=== PATIENT | female | born 1990 | race Caucasian/White ===

== ENCOUNTER 2018-07-02 15:41 | Emergency (ER) | payer OTHER ==
[2018-07-02 16:03] VITALS: BP 113/71
--- NOTE | 2018-07-02 16:18 | ED Physician Documentation ---
History of Present Illness - Stated complaint Stated Complaint: DOMINGUEZ/HOT FLASH/DIZZY - Chief complaint Chief Complaint: General - History obtained from History obtained from: Patient, Family - History of Present Illness Timing: Today (At 930 today she had a relatively sudden onset headache that was only present if she moved her head or bends over. It was bitemporal. It was not the worst headache of her life. 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 Subsequent to that she did get a little panicky with palpitations. At this point she feels almost completely better with just a mild headache and anxiety which she declines any medications for. She denies any new medications. No recent travel. No possibility of , she has an IUD in place.) Review of Systems Constitutional: reports: Sweats. denies: Fever, Chills, Myalgias Throat: reports: Sore throat (gone) Cardiac: reports: Palpitations. 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 - Present Medications Home Medications: Ambulatory Orders Medication Instructions Recorded Confirmed Aripiprazole [Abilify] 10 mg ORAL DAILY 03/28/14 03/28/14 - Allergies Allergies/Adverse Reactions: Allergies Allergy/AdvReac Type Severity Reaction Status Date / Time Penicillins Allergy Hives Verified 07/02/18 16:03 - Social History Does the pt smoke?: No Smoking Status: Never smoker Does the pt drink ETOH?: No Does the pt have substance abuse?: No - Immunizations Immunizations are current?: Yes PD ED PE NORMAL - Vitals Vital signs reviewed: Yes - General General: Alert and oriented X 3, No acute distress - HEENT HEENT: PERRL, EOMI - Neck Neck: Supple, no meningeal sign, No bony TTP - Cardiac Cardiac: RRR, No murmur - Respiratory Respiratory: No respiratory distress, Clear bilaterally - Abdomen Abdomen: Normal bowel sounds, Soft, Non tender - Back Back: No CVA TTP, No spinal TTP - Derm Derm: Normal color, Warm and dry, No rash - Extremities Extremities: No edema, No calf tenderness / cord - Neuro Neuro: Alert and oriented X 3, Normal speech Results - Vitals Vitals: Vital Signs - 24 hr 07/02/18 15:57 Temperature 36 C L Heart Rate 71 Respiratory 16 Rate Blood Pressure 113/71 O2 Saturation 98 Oxygen O2 Source Room air - EKG (time done) 1630 Rate: Rate (enter#) (65) Rhythm: NSR [place]: Normal Intervals: Normal MD QRS: Normal Ischemia: Normal ST segments Computer interpretation: Agree with computer - Labs Labs: Laboratory Tests 07/02/18 07/02/18 07/02/18 16:21 16:21 16:21 WBC 9.6 RBC 4.77 Hgb 13.5 Hct 40.6 MCV 85.0 MCH 28.3 MCHC 33.3 RDW 12.9 Plt Count 330 MPV 9.2 Neut # (Auto) 5.9 Lymph # (Auto) 2.7 [place] # (Auto) 0.9 Eos # (Auto) 0.1 Baso # (Auto) 0.0 Absolute Nucleated RBC 0.01 Nucleated RBC % 0.1 Sodium 137 Potassium 3.7 Chloride 103 Carbon Dioxide 25 Anion Gap 9.0 BUN 16 Creatinine 0.5 Estimated GFR (MDRD) 146 Glucose 86 Calcium 8.8 Total Bilirubin 0.6 AST 16 ALT 12 Alkaline Phosphatase 74 Total Protein 7.8 Albumin 4.2 Globulin 3.6 Albumin/Globulin Ratio 1.2 Lipase 40 TSH 1.39 Urine Color Urine Clarity Urine pH Ur Specific [place] Urine Protein Urine Glucose (UA) Urine Ketones Urine Occult Blood Urine Nitrite Urine Bilirubin Urine Urobilinogen Ur Leukocyte Esterase Ur Microscopic Review Urine Culture Comments Urine HCG, Qual 07/02/18 16:41 WBC RBC Hgb Hct MCV MCH MCHC RDW Plt Count MPV Neut # (Auto) Lymph # (Auto) [place] # (Auto) Eos # (Auto) Baso # (Auto) Absolute Nucleated RBC Nucleated RBC % Sodium Potassium Chloride Carbon Dioxide Anion Gap BUN Creatinine Estimated GFR (MDRD) Glucose Calcium Total Bilirubin AST ALT Alkaline Phosphatase Total Protein Albumin Globulin Albumin/Globulin Ratio Lipase TSH Urine Color LT. YELLOW Urine Clarity CLEAR Urine pH 7.0 Ur Specific [place] 1.015 Urine Protein NEGATIVE Urine Glucose (UA) NEGATIVE Urine Ketones NEGATIVE Urine Occult Blood NEGATIVE Urine Nitrite NEGATIVE Urine Bilirubin NEGATIVE Urine Urobilinogen 0.2 (NORMAL) Ur Leukocyte Esterase NEGATIVE Ur Microscopic Review NOT INDICATED Urine Culture Comments NOT INDICATED Urine HCG, Qual NEGATIVE - Rads (name of study) CT Head Radiology: EMP read contemporaneously (NAD) PD MEDICAL DECISION MAKING - ED course ED course: 27-year-old with atypical symptoms today of headache, it was sudden in onset but only present if she moved her head and then associated with hot flashes and palpitations. Her symptoms are now gone and her examination and diagnostics are negative. Departure - Departure Disposition: 01 Home, Self Care Clinical Impression: Hot flashes not due to menopause, Palpitations Headache Qualifiers: Headache type: unspecified Headache chronicity pattern: acute headache Intractability: not intractable Qualified Code(s): R51 - Headache Condition: Good Record reviewed to determine appropriate education?: Yes Comments: As discussed your diagnostic's are normal today with normal blood work, urinalysis, head CT and EKG. Please return for new or worsening symptoms. Follow-up with your doctor regardless for recheck.
[2018-07-02 16:34] LABS: BASOPHILS % (AUTO) 0.3 %; EOSINOPHILS # (AUTO) 0.1 10^3/uL (0.0-0.7); EOSINOPHILS % (AUTO) 1.2 %; HGB - HEMOGLOBIN 13.5 g/dL (12.0-16.0); LYMPHOCYTES # (AUTO) 2.7 10^3/uL (1.5-3.5); LYMPHOCYTES % (AUTO) 28.5 %; MEAN CORPUSCULAR HEMOGLOBIN 28.3 pg (27.0-31.0); MEAN CORPUSCULAR HGB CONC 33.3 g/dL (32.0-36.0); MEAN PLATELET VOLUME 9.2 fL (7.9-10.8); MONOCYTES # (AUTO) 0.9 10^3/uL (0.0-1.0); MONOCYTES % (AUTO) 9.3 %; NEUTROPHILS # (AUTO) 5.9 10^3/uL (1.5-6.6); NEUTROPHILS % (AUTO) 60.7 %; PLT - PLATELET COUNT 330 10^3/uL (130-450); RED BLOOD COUNT 4.77 10^6/uL (4.20-5.40); RED CELL DISTRIBUTION WIDTH 12.9 % (12.0-15.0); WHITE BLOOD COUNT 9.6 x10^3/uL (4.8-10.8)
[2018-07-02 16:40] LABS: ALBUMIN 4.2 g/dL (3.2-5.5); ALBUMIN/GLOBULIN RATIO 1.2 (1.0-2.2); BILIRUBIN,TOTAL 0.6 mg/dL (0.2-1.0); CALCIUM 8.8 mg/dL (8.5-10.3); CREATININE 0.5 mg/dL (0.4-1.0); TOTAL PROTEIN 7.8 g/dL (6.7-8.2)
--- NOTE | 2018-07-02 17:39 | CT Report ---
Reason: headache Procedure Date: 07/02/2018 Accession Number: [id number] / [id number] Procedure: CT - HEAD WO CPT Code: FULL RESULT: EXAM: CT HEAD EXAM DATE: 07/02/2018 04:54 PM. CLINICAL HISTORY: Headache. COMPARISON: None. TECHNIQUE: Multiaxial CT images were obtained from the foramen magnum to the vertex. Reformats: Sagittal and coronal. IV contrast: None. In accordance with CT protocol optimization, one or more of the following dose reduction techniques were utilized for this exam: automated exposure control, adjustment of mA and/or KV based on patient size, or use of iterative reconstructive technique. FINDINGS: Parenchyma: No intraparenchymal hemorrhage. No evidence of mass, midline shift, or CT findings of infarction. Gonzales-white differentiation is distinct. Extraaxial Spaces: Normal for age. No subdural or epidural collections identified. Ventricles: Normal in size and position. Sinuses and Orbits: Right maxillary sinus mucus retention cyst. Bones: No evidence of fracture or calvarial defect. Other: None. IMPRESSION: No acute intracranial abnormality. RADIA
[2018-07-02 18:20] LABS: BILIRUBIN,URINE NEGATIVE (NEGATIVE); GLUCOSE, URINE (UA) NEGATIVE (NEGATIVE); KETONES,URINE (UA) NEGATIVE (NEGATIVE); LEUKOCYTE ESTERASE, URINE NEGATIVE (NEGATIVE); NITRITE,URINE NEGATIVE (NEGATIVE); OCCULT BLOOD,URINE NEGATIVE (NEGATIVE); PROTEIN,URINE NEGATIVE (NEGATIVE); UROBILINOGEN,URINE 0.2 (NORMAL) E.U./dL (NORMAL)
[2018-07-02 18:21] LABS: CLARITY,URINE CLEAR (CLEAR); HCG UR QUAL NEGATIVE
== END 2018-07-02 18:32 | disposition home or self-care (01) ==
LOC: ED 15:41
DX: R23.2 Flushing (principal); R00.2 Palpitations
CPT/HCPCS: 36415; 70450; 80053; 81001; 81003; 81025; 83690; 84443; 85025; 87086; 93005; 99283

== ENCOUNTER 2018-07-15 19:54 | Emergency (ER) | payer OTHER ==
--- NOTE | 2018-07-15 22:09 | ED Physician Documentation ---
PD HPI MHE - Stated complaint Stated Complaint: MHE - Chief complaint Chief Complaint: MHE - History obtained from History obtained from: Patient, Friend - History of Present Illness Primary symptom: Self harm - other Timing - onset: How many hours ago (12) Pain level max: 0 Pain level now: 0 Severity Comments: mild Contributing factors: Family - Additional information Additional information: Patient states that she has thought about cutting herself and is concerned. She denies any suicidal thoughts or suicidal intentions at this time.He is unsure if she would benefit from an inpatient psychiatric stay.Cutting behavior but no his tory of suicidal attempt. Review of Systems Ten Systems: 10 systems reviewed and negative Constitutional: reports: Reviewed and negative Eyes: reports: Reviewed and negative Ears: reports: Reviewed and negative Nose: reports: Reviewed and negative Throat: reports: Reviewed and negative Cardiac: reports: Reviewed and negative Respiratory: reports: Reviewed and negative GI: reports: Reviewed and negative : reports: Reviewed and negative Skin: reports: Reviewed and negative Musculoskeletal: reports: Reviewed and negative Neurologic: reports: Reviewed and negative Psychiatric: reports: Reviewed and negative Endocrine: reports: Reviewed and negative Immunocompromised: reports: Reviewed and negative PD PAST MEDICAL HISTORY - Past Medical History Past Medical History: Yes Psych: Bipolar disorder Other Past Medical History: Reviewed and not pertinent - Past Surgical History Past Surgical History: Yes 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: No - Family History Family history: reports: Other (Reviewed and not pertinent) - Immunizations Immunizations are current?: Yes - POLST Patient has POLST: No PD ED PE NORMAL - Vitals Vital signs reviewed: Yes - General General: Alert and oriented X 3, No acute distress - HEENT HEENT: PERRL - Neck Neck: Supple, no meningeal sign - Cardiac Cardiac: RRR, No murmur - Respiratory Respiratory: Clear bilaterally - Abdomen Abdomen: Normal bowel sounds, Soft, Non tender, Non distended - Derm Derm: Warm and dry - Extremities Extremities: No deformity - Neuro Neuro: Alert and oriented X 3 - Psych Psych: Normal mood, Normal affect Results - Vitals Vitals: Vital Signs - 24 hr 07/15/18 20:04 Temperature 37 C Heart Rate 87 Respiratory 20 Rate Blood Pressure 133/98 H O2 Saturation 100 Oxygen O2 Source Room air PD MEDICAL DECISION MAKING - ED course Complexity details: reviewed results, re-evaluated patient, considered differential, d/w patient, d/w family ED course: 27-year-old female presents with thoughts of self-harm. Patient was interviewed at length along with friend and states that she would prefer to discharge home in the care of her friend poncho and return tomorrow if symptoms worsen or if she has any suicidal thoughts. Patient denies any suicidality at this time. Friend and neighbor states that she will take patient home and stay with her through the night. Patient will not have access to any lethal means. Departure - Departure Disposition: 01 Home, Self Care Clinical Impression: Self-harm Depression Qualifiers: Depression Type: unspecified Qualified Code(s): F32.9 - Major depressive disorder, single episode, unspecified Condition: Stable Instructions: ED Depression Follow-Up: Your, PCP [Other] Comments: Please return anytime or call 911 if you feel that you are a danger to yourself or others. Take medications as prescribed. Follow-up with PCP within 24 hours.
[2018-07-15 22:13] VITALS: BP 108/67
== END 2018-07-15 22:15 | disposition home or self-care (01) ==
LOC: ED 19:54
DX: F32.9 Major depressive disorder, single episode, unspecified (principal); Z91.5 Personal history of self-harm
CPT/HCPCS: 99283

== ENCOUNTER 2019-06-22 18:28 | Emergency (ER) | payer OTHER ==
--- NOTE | 2019-06-22 19:49 | ED Physician Documentation ---
History of Present Illness - Stated complaint Stated Complaint: RHR, SOA - Chief complaint Chief Complaint: Cardiac - History obtained from History obtained from: Patient - History of Present Illness Timing: Today Pain level max: 0 Pain level now: 0 - Additonal information Additional information: 28-year-old female presents to the emergency department with palpitations today. Started after taking pre-workout powder today. She states that she feels shaky, anxious and like her heart is racing. Nothing makes it better or worse. Review of Systems Ten Systems: 10 systems reviewed and negative Constitutional: denies: Fever, Chills Throat: denies: Sore throat Cardiac: reports: Palpitations. 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 - Present Medications Home Medications: Ambulatory Orders Medication Instructions Recorded Confirmed Aripiprazole [Abilify] 5 mg ORAL DAILY 03/28/14 06/22/19 Citalopram [CeleXA] 20 mg PO DAILY 06/22/19 06/22/19 [employer] Carbonate 300 mg PO DAILY 06/22/19 06/22/19 [employer] Carbonate 600 mg PO DAILY PM 06/22/19 06/22/19 - Allergies Allergies/Adverse Reactions: Allergies Allergy/AdvReac Type Severity Reaction Status Date / Time Penicillins Allergy Hives Verified 07/15/18 20:08 - Social History Does the pt smoke?: No Smoking Status: Never smoker Does the pt drink ETOH?: Yes Does the pt have substance abuse?: No - Immunizations Immunizations are current?: Yes - POLST Patient has POLST: No PD ED PE NORMAL - Vitals Vital signs reviewed: Yes - General General: Alert and oriented X 3, No acute distress, Well developed/nourished - HEENT HEENT: Moist mucous membranes - Neck Neck: Supple, no meningeal sign - Cardiac Cardiac: RRR, Strong equal pulses - Respiratory Respiratory: No respiratory distress, Clear bilaterally - Abdomen Abdomen: Soft, Non tender, Non distended - Derm Derm: Warm and dry, No rash - Extremities Extremities: No edema - Neuro Neuro: Alert and oriented X 3 - Psych Psych: Normal mood, Normal affect Results - Vitals Vitals: Vital Signs - 24 hr 06/22/19 06/22/19 06/22/19 18:33 19:00 19:55 Temperature 37.2 C Heart Rate 85 83 72 Respiratory 16 17 18 Rate Blood Pressure 127/84 H 109/78 113/79 O2 Saturation 98 96 95 Oxygen O2 Source Room air - EKG (time done) 1837 Rate: Rate (enter#) (76) Rhythm: NSR [place]: Normal Intervals: Normal [place] QRS: Normal Ischemia: Normal ST segments PD MEDICAL DECISION MAKING - ED course Complexity details: reviewed results, re-evaluated patient, considered differential, d/w patient ED course: Patient feels better after eating and drinking. Observed in the emergency department with no further palpitations. Likely secondary to the high caffeine content of her pre-workout powder. Patient is currently asymptomatic. Patient counseled regarding signs and symptoms for which I believe and urgent re- evaluation would be necessary. Patient with good understanding of and agreement to plan and is comfortable going home at this time This document was made in part using voice recognition software. While efforts are made to proofread this document, sound alike and grammatical errors may occur. Departure - Departure Disposition: 01 Home, Self Care Clinical Impression: Palpitations Caffeine overdose Qualifiers: Encounter type: initial encounter Injury intent: accidental or unintentional Qualified Code(s): T43.611A - Poisoning by caffeine, accidental (unintentional), initial encounter Condition: Good Instructions: ED Palpitations Follow-Up: your,doctor in as needed. [Other] Comments: Follow up with your doctor as needed. Make sure to watch your caffeine intake. Return if you worsen. Discharge Date/Time: 06/22/19 19:57
[2019-06-22 19:55] VITALS: BP 113/79
== END 2019-06-22 19:57 | disposition home or self-care (01) ==
LOC: ED 18:28
DX: T43.611A Poisoning by caffeine, accidental (unintentional), initial encounter (principal); R00.2 Palpitations
CPT/HCPCS: 93005; 99283; 99284

== ENCOUNTER 2019-08-02 19:29 | Emergency (ER) | payer OTHER ==
--- NOTE | 2019-08-02 19:32 | ED Physician Documentation ---
History of Present Illness - Stated complaint Stated Complaint: LOWER BACK PX - History obtained from History obtained from: Patient (the patient is a 28 y/o f who p/w a cc of b/l lower back pain and she is concerned that something could be wrong with her kidneys. she reports that she is having bilateral lower back pain in the lumbar region. she denies any bowel or bladder dysfunction. denies any hx of IVDA. denies any hx of spinal surgery, denies flank pain, dysuria, hematuria or syncope or lower extremity weakness or sensory loss.) Review of Systems Constitutional: reports: Reviewed and negative Eyes: reports: Reviewed and negative Ears: reports: Reviewed and negative Nose: reports: Reviewed and negative Throat: reports: Reviewed and negative Cardiac: reports: Reviewed and negative Respiratory: reports: Reviewed and negative GI: reports: Reviewed and negative : reports: Reviewed and negative Skin: reports: Reviewed and negative Musculoskeletal: reports: Back pain Neurologic: reports: Reviewed and negative Psychiatric: reports: Reviewed and negative Endocrine: reports: Reviewed and negative Immunocompromised: reports: Reviewed and negative PD PAST MEDICAL HISTORY - Past Medical History Psych: Anxiety, Bipolar disorder - Past Surgical History Past Surgical History: Yes 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 - Present Medications Home Medications: Ambulatory Orders Medication Instructions Recorded Confirmed Aripiprazole [Abilify] 5 mg ORAL DAILY 03/28/14 06/22/19 Citalopram [CeleXA] 20 mg PO DAILY 06/22/19 06/22/19 [place] Carbonate 300 mg PO DAILY 06/22/19 06/22/19 [place] Carbonate 600 mg PO DAILY PM 06/22/19 06/22/19 - Allergies Allergies/Adverse Reactions: Allergies Allergy/AdvReac Type Severity Reaction Status Date / Time Penicillins Allergy Hives Verified 08/02/19 19:33 - Social History Does the pt smoke?: No Smoking Status: Never smoker Does the pt drink ETOH?: Yes Does the pt have substance abuse?: No - Immunizations Immunizations are current?: Yes - POLST Patient has POLST: No PD ED PE NORMAL - Vitals Vital signs reviewed: Yes - General General: Alert and oriented X 3, No acute distress, Well developed/nourished - HEENT HEENT: PERRL, Moist mucous membranes, Pharynx benign - Neck Neck: Supple, no meningeal sign, No JVD - Cardiac Cardiac: RRR, No murmur, Strong equal pulses - Respiratory Respiratory: No respiratory distress, Clear bilaterally - Abdomen Abdomen: Normal bowel sounds, Soft, Non tender, Non distended, No organomegaly - Back Back: No CVA TTP, No spinal TTP, Other (bilateral lumbar paraspinal muscle spasms, no midline ttp, full ROM on active and passive ROM on flexion/extension/sidebending/rotation. normal gait, strength is 5/5 in b/l upper and lower extremities. proprioception intact to b/l greater toes. reflexes are 2+ and symettric in b/l patellar and achilles. silt throughout. ) - Derm Derm: Normal color, Warm and dry, No rash - Extremities Extremities: No deformity, No tenderness to palpate, Normal ROM s pain, No edema, No calf tenderness / cord - Neuro Neuro: Alert and oriented X 3, manager aerospace 2-12 intact, No motor deficit, No sensory deficit, Normal speech - Psych Psych: Normal mood, Normal affect Results - Vitals Vitals: Vital Signs - 24 hr 08/02/19 19:33 Temperature 36.5 C Heart Rate 72 Respiratory 14 Rate Blood Pressure 148/90 H O2 Saturation 97 Oxygen O2 Source Room air - Labs Labs: Laboratory Tests 08/02/19 19:41 Urine Color YELLOW Urine Clarity CLEAR Urine pH 5.5 Ur Specific [place] 1.025 Urine Protein NEGATIVE Urine Glucose (UA) NEGATIVE Urine Ketones NEGATIVE Urine Occult Blood NEGATIVE Urine Nitrite NEGATIVE Urine Bilirubin NEGATIVE Urine Urobilinogen 0.2 (NORMAL) Ur Leukocyte Esterase NEGATIVE Ur Microscopic Review NOT INDICATED Urine Culture Comments NOT INDICATED Urine HCG, Qual NEGATIVE PD MEDICAL DECISION MAKING - ED course Complexity details: considered differential (no red flags on hx or exam. ua is unremarkable. patient is well appearing on exam, patient has follow up tomorrow. ) Departure - Departure Disposition: 01 Home, Self Care Clinical Impression: Back pain Qualifiers: Back pain location: low back pain Chronicity: acute Back pain laterality: unspecified Sciatica presence: without sciatica Qualified Code(s): M54.5 - Low back pain Condition: Stable Instructions: ED Low Back Pain Injury Follow-Up: Mike Edwards MD [Primary Care Provider] - Tomorrow
[2019-08-02 19:36] VITALS: BP 148/90
[2019-08-02 19:57] LABS: BILIRUBIN,URINE NEGATIVE (NEGATIVE); GLUCOSE, URINE (UA) NEGATIVE (NEGATIVE); KETONES,URINE (UA) NEGATIVE (NEGATIVE); LEUKOCYTE ESTERASE, URINE NEGATIVE (NEGATIVE); NITRITE,URINE NEGATIVE (NEGATIVE); OCCULT BLOOD,URINE NEGATIVE (NEGATIVE); PH,URINE 5.5 PH (5.0-7.5); PROTEIN,URINE NEGATIVE (NEGATIVE); UROBILINOGEN,URINE 0.2 (NORMAL) E.U./dL (NORMAL)
[2019-08-02 20:01] LABS: CLARITY,URINE CLEAR (CLEAR); HCG UR QUAL NEGATIVE
== END 2019-08-02 20:16 | disposition home or self-care (01) ==
LOC: ED 19:29
DX: M54.5 Low back pain (principal)
CPT/HCPCS: 81001; 81003; 81025; 87086; 99282; 99283

== ENCOUNTER 2019-09-30 12:04 | Outpatient (CLI) | payer OTHER | END 2019-09-30 12:05 | disposition EMS.NT | LOC: EMS 12:04 | PROVIDERS: ATTEND Surgery | DX: R06.02 Shortness of breath (principal); R07.89 Other chest pain; R45.82 Worries ==

== ENCOUNTER 2020-06-05 10:30 | Emergency (ER) | payer OTHER ==
[2020-06-05 10:36] VITALS: BP 137/80
--- NOTE | 2020-06-05 10:43 | ED Physician Documentation ---
PD HPI FEMALE - Stated complaint Stated Complaint: FEMALE - Chief complaint Chief Complaint: UTI - History obtained from History obtained from: Patient - History of Present Illness Timing - onset: Yesterday Timing - duration: Days (04/23) Timing - details: Abrupt onset, Still present Associated symptoms: Dysuria, Urinary frequency. 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 - Present Medications Home Medications: Ambulatory Orders Medication Instructions Recorded Confirmed [place] Carbonate 300 mg PO DAILY 06/22/19 06/05/20 [place] Carbonate 900 mg PO DAILY PM 06/22/19 06/05/20 Buspirone HCl 15 mg PO BID 06/05/20 06/05/20 Sulfamethox/Trimeth 800/160 1 each PO BID #10 tab 06/05/20 [Bactrim Ds 800/160] buPROPion HCL [Bupropion Xl] 150 mg PO DAILY 06/05/20 06/05/20 - Allergies Allergies/Adverse Reactions: Allergies Allergy/AdvReac Type Severity Reaction Status Date / Time Penicillins Allergy Hives Verified 06/05/20 10:33 - Social History Does the pt smoke?: No Smoking Status: Never smoker Does the pt drink ETOH?: Yes Does the pt have substance abuse?: No - Immunizations Immunizations are current?: Yes - POLST Patient has POLST: No PD ED PE NORMAL - Vitals Vital signs reviewed: Yes - General General: Alert and oriented X 3, No acute distress, Well developed/nourished - Abdomen Abdomen: Soft, Non tender - Female Female : Deferred - Back Back: No CVA TTP - Derm Derm: Normal color, Warm and dry Results - Vitals Vitals: Vital Signs - 24 hr 06/05/20 10:33 Temperature 36.2 C L Heart Rate 89 Respiratory 16 Rate Blood Pressure 137/80 H O2 Saturation 100 Oxygen O2 Source Room air - Labs Labs: Laboratory Tests 06/05/20 10:40 Urine Color YELLOW Urine Clarity SL. CLOUDY Urine pH 7.5 Ur Specific [place] 1.015 Urine Protein NEGATIVE Urine Glucose (UA) NEGATIVE Urine Ketones NEGATIVE Urine Occult Blood SMALL H Urine Nitrite NEGATIVE Urine Bilirubin NEGATIVE Urine Urobilinogen 0.2 (NORMAL) Ur Leukocyte Esterase MODERATE H Urine RBC 6-10 H Urine WBC >25 H Ur Squamous Epith Cells FEW Squamous Urine Bacteria Few Ur Microscopic Review INDICATED Urine Culture Comments INDICATED Urine HCG, Qual NEGATIVE PD MEDICAL DECISION MAKING - ED course Complexity details: considered differential (UTI symptoms and UA consistent with it. DEnies vaginal symptoms. ), d/w patient Departure - Departure Disposition: Home, Self Care Clinical Impression: Dysuria Urinary tract infection Qualifiers: Urinary tract infection type: acute cystitis Hematuria presence: without hematuria Qualified Code(s): N30.00 - Acute cystitis without hematuria Condition: Stable Record reviewed to determine appropriate education?: Yes Instructions: ED UTI Cystitis Female Prescriptions: Sulfamethox/Trimeth 800/160 [Bactrim Ds 800/160] 1 each PO BID #10 tab Comments: Your symptoms sound like bladder infection in your urine test is suggestive of that. We will treat it as bladder infection with Bactrim twice daily for 5 days. Continue the Azo as needed for discomfort. Tylenol ibuprofen if needed. Stay well-hydrated. The culture will result in a couple of days we will call you if we need to modify the antibiotic treatment. Recheck if not improved well over the next 2 to 3 days and resolved by 3 to 5 days. Discharge Date/Time: 06/05/20 11:16
[2020-06-05 10:47] LABS: BILIRUBIN,URINE NEGATIVE (NEGATIVE); GLUCOSE, URINE (UA) NEGATIVE (NEGATIVE); KETONES,URINE (UA) NEGATIVE (NEGATIVE); LEUKOCYTE ESTERASE, URINE MODERATE (NEGATIVE); NITRITE,URINE NEGATIVE (NEGATIVE); OCCULT BLOOD,URINE SMALL (NEGATIVE); PH,URINE 7.5 PH (5.0-7.5); PROTEIN,URINE NEGATIVE (NEGATIVE); UROBILINOGEN,URINE 0.2 (NORMAL) E.U./dL (NORMAL)
[2020-06-05 10:52] LABS: CLARITY,URINE SL. CLOUDY (CLEAR); HCG UR QUAL NEGATIVE
[2020-06-05 11:03] LABS: SQUAMOUS EPITHELIAL CELL,UR FEW Squamous (<= Few)
[2020-06-05] MEDS ORDERED: SULFAMETH/TRIMETH DS 800/160 MG TABLET PO STA (11:03)
[2020-06-05] MEDS ORDERED: PHENAZOPYRIDINE 100 MG TABLET PO STA (11:03)
[2020-06-05 11:04] LABS: BACTERIA,URINE Few /HPF (None Seen)
== END 2020-06-05 11:16 | disposition home or self-care (01) ==
LOC: ED 10:30
DX: N30.00 Acute cystitis without hematuria (principal)
CPT/HCPCS: 81001; 81025; 87086; 87181; 99283; A9270; 81003

== ENCOUNTER 2020-10-18 17:40 | Emergency (ER) | payer OTHER ==
[2020-10-18 18:02] VITALS: BP 134/91
[2020-10-18 18:11] LABS: GLUCOSE, URINE (UA) 100 mg/dL (NEGATIVE); KETONES,URINE (UA) TRACE mg/dL (NEGATIVE); LEUKOCYTE ESTERASE, URINE SMALL (NEGATIVE); NITRITE,URINE POSITIVE (NEGATIVE); OCCULT BLOOD,URINE TRACE-INTA (NEGATIVE); PH,URINE 5.5 PH (5.0-7.5); PROTEIN,URINE 100 mg/dL (NEGATIVE); UROBILINOGEN,URINE 4 E.U./dL (NORMAL)
[2020-10-18 18:13] LABS: BILIRUBIN,URINE NEGATIVE (NEGATIVE); CLARITY,URINE CLEAR (CLEAR); HCG UR QUAL NEGATIVE; ICTOTEST,URINE NEGATIVE
[2020-10-18 18:20] LABS: BACTERIA,URINE Rare /HPF (None Seen); RBC,URINE 0-5 /HPF (0-5); SQUAMOUS EPITHELIAL CELL,UR FEW Squamous (<= Few); WBC,URINE >25 /HPF (0-5)
[2020-10-18] MEDS ORDERED: cephALEXin 250 MG CAPSULE PO STA (19:03)
--- NOTE | 2020-10-18 19:13 | ED Physician Documentation ---
History of Present Illness - Stated complaint Stated Complaint: FEMALE - Chief complaint Chief Complaint: UTI - Additonal information Additional information: 30-year-old female presents emergency department for 2 days of dysuria urgency a nd frequency. No flank pain fevers or vomiting. This is very similar to previous urinary tract infection she has had. This episode began after recent sexual activity. Review of Systems Constitutional: denies: Fever, Chills Eyes: reports: Reviewed and negative Nose: reports: Reviewed and negative Throat: reports: Reviewed and negative Cardiac: reports: Reviewed and negative Respiratory: reports: Reviewed and negative GI: denies: Abdominal Pain, Nausea, Vomiting : reports: Dysuria, Frequency, Hesitancy. 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 - Present Medications Home Medications: Ambulatory Orders Medication Instructions Recorded Confirmed [place] Carbonate 300 mg PO DAILY 06/22/19 10/18/20 [place] Carbonate 900 mg PO DAILY PM 06/22/19 10/18/20 Buspirone HCl 30 mg PO DAILY 06/05/20 10/18/20 buPROPion HCL [Bupropion Xl] 150 mg PO DAILY 06/05/20 10/18/20 Buspirone HCl 15 mg PO QPM 10/18/20 10/18/20 Phenazopyridine HCl [Pyridium] 200 mg PO TID PRN #6 tablet 10/18/20 cephALEXin [Keflex] 500 mg PO BID #14 10/18/20 - Allergies Allergies/Adverse Reactions: Allergies Allergy/AdvReac Type Severity Reaction Status Date / Time Penicillins Allergy Hives Verified 10/18/20 18:24 - Social History Does the pt smoke?: No Smoking Status: Never smoker Does the pt drink ETOH?: Yes Does the pt have substance abuse?: No - Immunizations Immunizations are current?: Yes - POLST Patient has POLST: No PD ED PE NORMAL - General General: Alert and oriented X 3, No acute distress - Neck Neck: Supple, no meningeal sign - Cardiac Cardiac: RRR, No murmur - Respiratory Respiratory: Clear bilaterally - Abdomen Abdomen: Normal bowel sounds, Soft, Non distended. No: Non tender (Mild suprapubic tenderness without guarding or rebound. No flank or CVA tenderness) - Back Back: No CVA TTP, No spinal TTP - Derm Derm: Normal color, Warm and dry, No rash Results - Vitals Vitals: Vital Signs - 24 hr 10/18/20 17:50 Temperature 36.5 C Heart Rate 85 Respiratory 16 Rate Blood Pressure 134/91 H O2 Saturation 98 Oxygen O2 Source Room air - Labs Labs: Laboratory Tests 10/18/20 18:03 Urine Color ORANGE Urine Clarity CLEAR Urine pH 5.5 Ur Specific [place] 1.025 Urine Protein 100 H Urine Glucose (UA) 100 H Urine Ketones TRACE Urine Occult Blood TRACE-INTA Urine Nitrite POSITIVE H Urine Bilirubin NEGATIVE Urine Urobilinogen 4 H Ur Leukocyte Esterase SMALL H Urine RBC 0-5 Urine WBC >25 H Ur Squamous Epith Cells FEW Squamous Urine Bacteria Rare Ur Microscopic Review INDICATED Urine Culture Comments INDICATED Urine HCG, Qual NEGATIVE PD MEDICAL DECISION MAKING - ED course Complexity details: reviewed results, re-evaluated patient, d/w patient ED course: 30-year-old female presents emergency department for 2 days of dysuria urgency and frequency in the setting of recent sexual activity. Her urine is consistent with infection. Last urine culture showed showed a pansensitive E. coli. Patient will be started on cephalexin 500 mg twice daily for the next week. Emergent return precautions discussed for concerns of a sending infection pyelonephritis or failure of symptoms to improve. Departure - Departure Disposition: 01 Home, Self Care Clinical Impression: Urinary tract infection Qualifiers: Urinary tract infection type: acute cystitis Hematuria presence: without hematuria Qualified Code(s): N30.00 - Acute cystitis without hematuria Condition: Stable Record reviewed to determine appropriate education?: Yes Instructions: ED UTI Cystitis Female Prescriptions: cephALEXin [Keflex] 500 mg PO BID #14 Phenazopyridine HCl [Pyridium] 200 mg PO TID PRN #6 tablet PRN Reason: dysuria Comments: Freda you do have a urinary tract infection. Please fill the prescription for the antibiotics and begin taking twice daily for the next week. Your first dose was given here in the ER. With the appropriate antibiotics I would expect your symptoms to be improving over the next 24 hours. If worsening or you have fevers or vomiting please return immediately to the ER. I also prescribed a medication called Pyridium that will help reduce the pain in your bladder but it will cause your urine to turn bright orange.
== END 2020-10-18 19:19 | disposition home or self-care (01) ==
LOC: ED 17:40
DX: N30.00 Acute cystitis without hematuria (principal); Z88.0 Allergy status to penicillin
CPT/HCPCS: 81001; 81025; 87086; 99283; A9270; 81003

== ENCOUNTER 2021-05-01 11:02 | Emergency (ER) | payer OTHER ==
[2021-05-01 11:12] VITALS: BP 144/93
[2021-05-01 11:54] LABS: CALCIUM 9.3 mg/dL (8.5-10.3); CREATININE 0.6 mg/dL (0.4-1.0); POTASSIUM 4.2 mmol/L (3.5-5.0)
[2021-05-01 11:57] LABS: BILIRUBIN,URINE NEGATIVE (NEGATIVE); GLUCOSE, URINE (UA) NEGATIVE (NEGATIVE); KETONES,URINE (UA) NEGATIVE (NEGATIVE); LEUKOCYTE ESTERASE, URINE NEGATIVE (NEGATIVE); NITRITE,URINE NEGATIVE (NEGATIVE); OCCULT BLOOD,URINE NEGATIVE (NEGATIVE); PROTEIN,URINE NEGATIVE (NEGATIVE); UROBILINOGEN,URINE 0.2 (NORMAL) E.U./dL (NORMAL)
[2021-05-01 12:03] LABS: CLARITY,URINE CLEAR (CLEAR); HCG UR QUAL NEGATIVE
[2021-05-01 12:33] LABS: LITHIUM 0.25 mmol/L
--- NOTE | 2021-05-01 13:00 | ED Physician Documentation ---
PD HPI FOCAL NEURO - Stated complaint Stated Complaint: DIZZY/HIGH BP - Chief complaint Chief Complaint: Neuro - History obtained from History obtained from: Patient - Additional information Additional information: 30 yo woman with anxiety and history of bipolar disorder was in her usual state of health at work today and talking with a friend while standing up and she suddenly felt like she was on a boat. If she closed her eyes she felt like she was spinning. It was associated with mild nausea and disequilibrium. It is all but gone now. No history of prior. She is being tapered off lithium currently. 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 - Present Medications Home Medications: Ambulatory Orders Medication Instructions Recorded Confirmed [place] Carbonate 300 mg PO DAILY 06/22/19 10/18/20 [place] Carbonate 900 mg PO DAILY PM 06/22/19 10/18/20 Buspirone HCl 30 mg PO DAILY 06/05/20 10/18/20 buPROPion HCL [Bupropion Xl] 150 mg PO DAILY 06/05/20 10/18/20 Buspirone HCl 15 mg PO QPM 10/18/20 10/18/20 Phenazopyridine HCl [Pyridium] 200 mg PO TID PRN #6 tablet 10/18/20 cephALEXin [Keflex] 500 mg PO BID #14 10/18/20 - Allergies Allergies/Adverse Reactions: Allergies Allergy/AdvReac Type Severity Reaction Status Date / Time Penicillins Allergy Hives Verified 05/01/21 11:12 - Social History Does the pt smoke?: No Smoking Status: Never smoker Does the pt drink ETOH?: Yes Does the pt have substance abuse?: No - Immunizations Immunizations are current?: Yes - POLST Patient has POLST: No PD ED PE NORMAL - Vitals Vital signs reviewed: Yes - General General: Alert and oriented X 3, No acute distress - HEENT HEENT: PERRL, EOMI - Neck Neck: Supple, no meningeal sign, No bony TTP - Neuro Neuro: Alert and oriented X 3, No motor deficit, No sensory deficit, Normal speech, Other (Just a couple of beats of nystagmus on far leftward gaze. Normal [id number] testing. Normal gait.) Results - Vitals Vitals: Vital Signs - 24 hr 05/01/21 11:06 Temperature 35.9 C L Heart Rate 72 Respiratory 18 Rate Blood Pressure 144/93 H O2 Saturation 100 Oxygen O2 Source Room air - EKG (time done) 1128 Rate: Rate (enter#) (72) Rhythm: NSR [place]: Normal Intervals: Normal [place] Ischemia: Non specific changes. No: ST elevation c/w ischemia, ST depression - Labs Labs: Laboratory Tests 05/01/21 05/01/21 05/01/21 11:20 11:39 11:39 Sodium 139 Potassium 4.2 Chloride 103 Carbon Dioxide 26 Anion Gap 10.0 BUN 11 Creatinine 0.6 Estimated GFR (MDRD) 116 Glucose 88 Calcium 9.3 Urine Color YELLOW Urine Clarity CLEAR Urine pH 7.0 Ur Specific [place] 1.010 Urine Protein NEGATIVE Urine Glucose (UA) NEGATIVE Urine Ketones NEGATIVE Urine Occult Blood NEGATIVE Urine Nitrite NEGATIVE Urine Bilirubin NEGATIVE Urine Urobilinogen 0.2 (NORMAL) Ur Leukocyte Esterase NEGATIVE Ur Microscopic Review NOT INDICATED Urine Culture Comments NOT INDICATED Urine HCG, Qual NEGATIVE Last Dose Date UNKNOWN Last Dose Time UNKNOWN [place] 0.25 PD MEDICAL DECISION MAKING - ED course ED course: Sounds like she has a resolving case of BPPV. Symptoms are minimal now. No physical findings except for just a touch of nystagmus on leftward gaze. No other positive cerebellar signs. Departure - Departure Disposition: 01 Home, Self Care Clinical Impression: BPPV (benign paroxysmal positional vertigo) Condition: Good Record reviewed to determine appropriate education?: Yes Instructions: ED BPV Vertigo Comments: Call your doctor to arrange a follow-up appointment, make the next available appointment. In the interim, return anytime if worse or if new symptoms develop.
== END 2021-05-01 13:04 | disposition home or self-care (01) ==
LOC: ED 11:02
DX: H81.4 Vertigo of central origin (principal)
CPT/HCPCS: 36415; 80048; 80178; 81001; 81003; 81025; 87086; 93005; 99282; 99283